=== PATIENT | male | born 1980 | race Caucasian/White ===

== ENCOUNTER 2020-04-30 21:19 | Emergency (ER) | payer OTHER ==
[~2020-04-30] VITALS: Ht 152.4 cm; Wt 81.6 kg
[2020-04-30 21:24] VITALS: Ht 152.4 cm; Wt 81.6 kg
[2020-04-30 22:45] VITALS: BP 159/83
== END 2020-04-30 22:45 | disposition other institution (70) ==
LOC: ED 21:19
DX: Z02.89 Encounter for other administrative examinations (principal)